=== PATIENT | male | born 1960 | race African-American/Black ===

== ENCOUNTER 2022-11-16 19:35 | Emergency (ER) | payer OTHER, MEDICAID ==
[~2022-11-16] VITALS: Ht 185.4 cm; Wt 143.0 kg
[2022-11-16 19:36] VITALS: BP_SYST 150
== END 2022-11-16 22:52 ==
LOC: ER 19:35
DX: I46.9 Cardiac arrest, cause unspecified (principal); J44.1 Chronic obstructive pulmonary disease with (acute) exacerbation; I10 Essential (primary) hypertension
CPT/HCPCS: 31500; 99291